=== PATIENT | female | born 1985 | race Caucasian/White ===

== ENCOUNTER 2016-10-30 05:08 | Inpatient (IN) | payer OTHER ==
[~2016-10-30] VITALS: Ht 167.6 cm; Wt 84.1 kg
[2016-10-30] MEDS ORDERED: MISOPROSTOL 200 MCG TABLET ONE (05:58)
[2016-10-30] MEDS ORDERED: NEWBORN KIT ONE ×2 (05:58→06:48)
[2016-10-30] MEDS ORDERED: LIDOCAINE 1%, 20ML ONE (05:58)
[2016-10-30] MEDS ORDERED: LACTATED RINGERS 1,000 ML IV SCH (06:34)
[2016-10-30] MEDS ORDERED: OXYTOCIN 30U/ 0.9% NaCL 500ML 500 ML IV ONE (06:34)
[2016-10-30] MEDS ORDERED: CALCIUM CARBONATE 500 MG TAB.CHEW PO PRN ×2 (07:00→09:00)
[2016-10-30] MEDS ORDERED: ONDANSETRON 2MG/ML, 2ML IVPush PRN (07:00)
[2016-10-30] MEDS ORDERED: TERBUTALINE 1 MG/ML, 1ML SQ PRN (07:00)
[2016-10-30] MEDS ORDERED: FENTANYL PF 100 MCG/2ML IV PRN (07:00)
[2016-10-30] MEDS ORDERED: PLEASE ENTER ALLERGIES MC SCH ×2 (07:00)
[2016-10-30] MEDS ORDERED: FENTANYL PF 100 MCG/2ML IVPush PRN (07:00)
[2016-10-30 07:22] LABS: DIFF TOTAL CELLS COUNTED 100 CELL DIFF
[2016-10-30 07:24] LABS: VERIFY COUNTS? YES
[2016-10-30 07:25] VITALS: BP 128/81
[2016-10-30] MEDS ORDERED: MAGNESIUM HYDROXIDE 8%, 30ML UDC PO PRN (09:00)
[2016-10-30] MEDS ORDERED: MISOPROSTOL 200 MCG TABLET PR PRN (09:00)
[2016-10-30] MEDS ORDERED: MEASLES,MUMPS&RUBELLA VACC/PF 0.5 ML SQ PRN (09:00)
[2016-10-30] MEDS ORDERED: DIPH,PERTUSS(ACELL),TET VAC/PF NC IM-VACC PRN (09:00)
[2016-10-30] MEDS ORDERED: OXYcodone/APAP 5/325MG TABLET PO PRN (09:00)
[2016-10-30] MEDS ORDERED: RHOGAM FROM BLOOD BANK 1 NOTE EA IM/IV ONE (09:00)
[2016-10-30] MEDS ORDERED: OXYcodone IR 5MG TABLET PO PRN (09:00)
[2016-10-30] MEDS ORDERED: ONDANSETRON 2MG/ML, 2ML IV PRN (09:00)
[2016-10-30] MEDS ORDERED: IBUPROFEN 600 MG TABLET ONE (10:32)
[2016-10-30] MEDS: IBUPROFEN 600 MG TABLET PO PRN ×3 (10:33→21:59)
[2016-10-30 11:20] VITALS: BP 127/69
[2016-10-30 16:00] VITALS: BP 123/66
[2016-10-30] MEDS: DOCUSATE 100 MG CAPSULE PO PRN ×2 (16:32→21:59)
[2016-10-30] MEDS: PRENATAL VIT/IRON/FA 1 EACH TABLET PO SCH (16:35)
[2016-10-30 17:46] LABS: DIFF TOTAL CELLS COUNTED 100 CELL DIFF
[2016-10-30 17:48] LABS: VERIFY COUNTS? YES
[2016-10-30 20:50] VITALS: BP 101/58
[2016-10-31 00:15] VITALS: BP 109/59
[2016-10-31 04:10] VITALS: BP 112/72
[2016-10-31] MEDS: IBUPROFEN 600 MG TABLET PO PRN ×3 (04:35→17:42)
[2016-10-31 08:00] VITALS: BP 111/63
[2016-10-31] MEDS: DOCUSATE 100 MG CAPSULE PO PRN (08:58)
[2016-10-31] MEDS: PRENATAL VIT/IRON/FA 1 EACH TABLET PO SCH (08:58)
[2016-10-31] MEDS ORDERED: IBUP-1222 PO (12:38)
[2016-10-31] MEDS ORDERED: OXYC-302 PO (12:39)
== END 2016-10-31 18:15 | disposition home or self-care (01) | DRG 775 ==
LOC: LDOP 05:08 → LDIP 06:01 → 2NW 12:06
PROVIDERS: ADMIT Obstetrics & Gynecology Gynecology; ATTEND Obstetrics & Gynecology Gynecology
PROC: 10E0XZZ Delivery of Products of Conception, External Approach (ICD-10-PCS; principal; 2016-10-30)
PROC: 0HQ9XZZ Repair Perineum Skin, External Approach (ICD-10-PCS; 2016-10-30)
DX: O48.0 Post-term pregnancy (principal); Z37.0 Single live birth; Z3A.40 40 weeks gestation of pregnancy; O99.52 Diseases of the respiratory system complicating childbirth; J45.909 Unspecified asthma, uncomplicated; O70.0 First degree perineal laceration during delivery
CPT/HCPCS: 36415; 82803; 85025; 86850; 86900; J2590; J7120

== ENCOUNTER 2017-10-13 20:54 | Emergency (ER) | payer OTHER ==
[~2017-10-13] VITALS: Ht 165.1 cm; Wt 79.6 kg
[~2017-10-13 20:54] MED LIST: IBUP-1222 PO; OXYC-302 PO
[2017-10-13 21:06] VITALS: BP 131/86
== END 2017-10-13 22:18 | disposition home or self-care (01) ==
LOC: ED 21:45
DX: L03.115 Cellulitis of right lower limb (principal); J18.9 Pneumonia, unspecified organism; J45.909 Unspecified asthma, uncomplicated
CPT/HCPCS: 99283